=== PATIENT | male | born 1985 | race Caucasian/White ===

== ENCOUNTER 2020-09-24 20:47 | Emergency (ER) | payer MEDICAID, OTHER ==
[2020-09-24] MEDS ORDERED: Dexamethasone 10 MG/ML SDV IM ONE (21:05)
[2020-09-24] MEDS ORDERED: Ketorolac 30 MG/ML SDV IM ONE (21:05)
--- NOTE | 2020-09-24 21:10 | EDM.PDOC ---
ED HPI GENERAL MEDICAL PROBLEM - General Chief Complaint: Upper Extremity Injury/Pain Stated Complaint: PAIN IN BOTH ARMS Time Seen by Provider: 09/24/20 20:48 Source of Information: Reports: Patient History Limitations: Reports: No Limitations - History of Present Illness INITIAL COMMENTS - FREE TEXT/NARRATIVE: 35-year-old male no past medical history presents for 1 week of bilateral upper extremity pain. He describes the pain as a numbness tingling sensation to his arms radiating from the elbow down to his hands. Sometimes the right is worse than the left but he noticed today the left is greater than the right. Symptoms are waxing and waning in intensity. He denies any injuries but notes that he does a lot of overhead lifting at work. He denies any muscle weakness. He denies any headache. He does note a "muscle spasm" in his right shoulder blade. Bilateral Lower Arm Pain Score (Numeric/FACES): 8 - Related Data Allergies Allergy/AdvReac Type Severity Reaction Status Date / Time No Known Allergies Allergy Verified 09/24/20 21:04 Home Meds: Home Meds Cyclobenzaprine [Flexeril] 10 mg PO TID PRN #20 tab 09/24/20 [Rx] Ibuprofen [Motrin] 600 mg PO Q6H PRN #30 tab 09/24/20 [Rx] Methylphenidate HCl [Ritalin] 20 mg PO BID 09/24/20 [History] oxyCODONE HCl/Acetaminophen [Percocet 10-325 mg Tablet] 1 each PO Q4H PRN #12 tablet 09/24/20 [Rx] Past Medical History - Past Health History Medical/Surgical History: Denies Medical/Surgical History Social & Family History - Tobacco Use Tobacco Use Status *Q: Former Tobacco User Used Tobacco, but Quit: Yes Month/Year Tobacco Last Used: 02/24 - Recreational Drug Use Recreational Drug Use: Yes Drug Use in Last 12 Months: No Review of Systems - Review of Systems Review Of Systems: Comprehensive ROS is negative, except as noted in HPI. ED EXAM, GENERAL - Physical Exam Exam: See Below Exam Limited By: No Limitations General Appearance: Alert, WD/WN, No Apparent Distress Head: Atraumatic, Normocephalic Neck: Normal Inspection, Supple, Non-Tender Respiratory/Chest: No Respiratory Distress, No Accessory Muscle Use Cardiovascular: Normal Peripheral Pulses, Regular Rate, Rhythm Back Exam: Normal Inspection Extremities: Normal Inspection, Normal Range of Motion, Non-Tender, Normal Capillary Refill Neurological: Alert, CN II-XII Intact, Normal Gait, No Motor/Sensory Deficits Psychiatric: Normal Affect, Normal Mood Skin Exam: Warm, Dry, Intact, Normal Color Course - Vital Signs Last Recorded V/S: Last Vital Signs Temp 96.8 F L 09/24/20 21:00 Pulse 94 09/24/20 21:00 Resp 14 09/24/20 21:00 BP 108/67 09/24/20 21:00 Pulse Ox 96 09/24/20 21:00 - Orders/Labs/Meds Meds: Medications Discontinued Medications Generic Name Dose Route Start Last Admin Trade Name Freq PRN Reason Stop Dose Admin Dexamethasone 10 mg 09/24/20 21:05 Dexamethasone 10 Mg/Ml Sdv IM 09/24/20 21:06 ONETIME ONE Ketorolac Tromethamine 30 mg 09/24/20 21:05 Ketorolac 30 Mg/Ml Sdv IM 09/24/20 21:06 ONETIME ONE - Re-Assessments/Exams Free Text/Narrative Re-Assessment/Exam: 09/24/20 21:12 We will treat symptomatically with Decadron and Toradol. Will discharge with Motrin, Percocet, Flexeril. I advised patient to follow-up with his primary care physician as I believe he would benefit from an MRI for more definitive diagnosis. Return precautions were discussed and documented in an educational handout with discharge instructions. Departure - Departure Time of Disposition: 21:08 Disposition: Home, Self-Care 01 Condition: Good Clinical Impression: Cervicalgia - Discharge Information Prescriptions: Cyclobenzaprine [Flexeril] 10 mg PO TID PRN #20 tab PRN Reason: Muscle Spasm Ibuprofen [Motrin] 600 mg PO Q6H PRN #30 tab PRN Reason: Pain oxyCODONE HCl/Acetaminophen [Percocet 10-325 mg Tablet] 1 each PO Q4H PRN #12 tablet PRN Reason: Pain Instructions: Cervical Radiculopathy Referrals: PCP,None [Primary Care Provider] - Forms: ED Department Discharge Additional Instructions: Your symptoms are most suggestive of cervical radiculopathy which is like a pinched nerve somewhere in the neck. I believe you would benefit from an MRI for a more definitive diagnosis. You can discuss this with your primary care physician. In the meantime I have sent 3 prescriptions to your pharmacy. 1 is called Flexeril which is a muscle relaxant. The other is Motrin which is a pain reliever that you can use every 6 hours. Be aware if you are using this for more than 3 days in a row it can cause an upset stomach and sometimes ulcers. You should take it with food. The other is Percocet which is an opioid pain reliever that can be habit-forming and should only be used if your pain is not well controlled with the other medications. If you are experiencing pain not well controlled at home, muscle weakness, or any new or concerning symptoms you are advised to come back to the emergency department for reassessment. The following information is given to patients seen in the emergency department who are being discharged to home. This information is to outline your options for follow-up care. We provide all patients seen in our emergency department with a follow-up referral. The need for follow-up, as well as the timing and circumstances, are variable depending upon the specifics of your emergency department visit. If you don't have a primary care physician on staff, we will provide you with a referral. We always advise you to contact your personal physician following an emergency department visit to inform them of the circumstance of the visit and for follow-up with them and/or the need for any referrals to a consulting specialist. The emergency department will also refer you to a specialist when appropriate. This referral assures that you have the opportunity for follow-up care with a specialist. All of these measure are taken in an effort to provide you with optimal care, which includes your follow-up. Under all circumstances we always encourage you to contact your private physician who remains a resource for coordinating your care. When calling for follow-up care, please make the office aware that this follow-up is from your recent emergency room visit. If for any reason you are refused follow-up, please contact the [facility] at and asked to speak to the emergency department charge nurse. Please follow up with your primary care physician. If you do not have a primary care physician, see below: [facility] [address] [place] [phone] [address] [place] [address] [facility] [address] [place] [address] Sepsis Event Note (ED) - Evaluation Sepsis Screening Result: No Definite Risk - Focused Exam Vital Signs: Vital Signs Temp Pulse Resp BP Pulse Ox 09/24/20 21:00 96.8 F L 94 14 108/67 96
== END 2020-09-24 21:20 | disposition home or self-care (01) ==
LOC: MW.ED 20:47
DX: M54.2 Cervicalgia (principal); Z87.891 Personal history of nicotine dependence
CPT/HCPCS: 96372; 99283; J1100; J1885

== ENCOUNTER 2020-09-27 16:37 | Emergency (ER) | payer MEDICAID ==
[2020-09-27] MEDS ORDERED: Sodium Chloride 0.9% 2.5 ML Syringe FLUSH PRN (17:12)
[2020-09-27] MEDS ORDERED: Sodium Chloride 0.9% 10 ML Syringe FLUSH PRN (17:12)
[2020-09-27] MEDS ORDERED: Ketorolac 30 MG/ML SDV IVPUSH ONE (17:12)
[2020-09-27] MEDS ORDERED: Orphenadrine 60 MG/2 ML Inj IM ONE (17:12)
--- NOTE | 2020-09-27 17:35 | EDM.PDOC ---
ED HPI GENERAL MEDICAL PROBLEM - General Chief Complaint: Back Pain or Injury Stated Complaint: HANDS AND ELBOWS SORE AND NUMB, BACK RIBCAGE PAIN Time Seen by Provider: 09/27/20 16:42 Source of Information: Reports: Patient History Limitations: Reports: No Limitations - History of Present Illness INITIAL COMMENTS - FREE TEXT/NARRATIVE: HISTORY AND PHYSICAL: History of present illness: The patient is a 35-year-old male with no past medical history who presents to the emergency department with complaints of right upper back pain that started last night. The patient was seen in the emergency department on 09/24/2020 for complaints of 1 week of bilateral upper extremity pain. Which was described as numbness tingling sensation to his arms radiating from the elbow down to his hands. At that visit the right is worse than the left but he had noticed that his left was greater at that time. He was treated with Decadron and Toradol in the emergency department he was discharged with instructions to take Motrin, Percocet and Flexeril. Today in the emergency department the patient reports that he took the Percocet on and on Monday but none today. He states it makes him feel terrible. He took the Motrin and Flexeril also this morning and again prior to coming in. The patient states that he felt well on Monday [place] He states last night his pain returned however the pain that he had been experiencing the right anterior chest moved to the right upper back. He states that he has still has arm pain but describes it more as elbow and wrist pain with pain in his joints. Patient denies any fever, chills, headache, change in vision, syncope or near syncope. Denies any chest pain, back pain, shortness of breath or cough. Denies any abdominal pain, nausea, vomiting, diarrhea, constipation or dysuria. Has not noted any blood in urine or stool. Patient has been eating and drinking appropriately. In the emergency room the patient is hemodynamically stable with a blood pressure of 130/69 and a pulse of 93. He is afebrile with a temperature of 96.7 Review of systems: As per history of present illness and below otherwise all systems reviewed and negative. Past medical history: As per history of present illness and as reviewed below otherwise noncontributory. Surgical history: As per history of present illness and as reviewed below otherwise noncontributory. Social history: See social history for further information Family history: As per history of present illness and as reviewed below otherwise noncontri butory. Physical exam: General: Well developed and well nourished. Alert and orientated x 3. Nontoxic in appearance and in no acute distress. Vital signs are stable and have been reviewed by me. Nursing notes were reviewed. HEENT: Atraumatic, normocephalic, pupils equal and reactive bilaterally, negative for conjunctival pallor or scleral icterus, mucous membranes moist, throat clear, neck supple, nontender, trachea midline. No drooling or trismus noted. No meningeal signs. No hot potato voice noted. Lungs: Clear to auscultation bilaterally. No wheezes, rales, or rhonchi. Chest nontender. Normal work of breathing, no accessory muscles used. Heart: S1S2, regular rate and rhythm without overt murmur, gallops, or rubs. No JVD. No peripheral edema Abdomen: Soft, nondistended, nontender. Normoactive bowel sounds. Negative for masses or costovertebral tenderness. Skin: Intact, warm, dry. No lesions or rashes noted. Hematologic: No petechiae or purpra. Mucosa appropriate color and normal nail bed color and refill. Back: Upper right scapula area tender. No tenderness over spine processes. Extremities: Moves all extremities per self without deficits but with pain, negative for cords or calf pain. Neurovascular unremarkable. Neuro: Awake, alert, oriented. Cranial nerves II through XII unremarkable. Cerebellum unremarkable. Motor and sensory unremarkable throughout. Exam nonfocal. Straight leg raise negative. Psychiatric: Mood and affect are appropriate. Normal thought process. Answering questions appropriately. Notes: *This patient was seen and evaluated during the 2019 SARS-CoV-2 novel coronavirus pandemic period. Community viral transmission is ongoing at time of this encounter and the emergency department is operating under pandemic response procedures. The above the patient has returned with similar complaints of continued numbness and tingling radiating from his neck down to his hands bilaterally. He still has pain in his thumbs. He also complains of right scapular back pain. His scapular back pain is muscular possibly related to his continued numbness and tingling of his arms. I will treat the patient's discomfort with IV Toradol, IV fluids, Zofran and check labs and a urine. The patient is agreeable to the plan. The patient is has decreased pain and IV fluids. His CBC and CMP are unremarkable his CRP is elevated. I ordered a COVID-19 and prednisone 40mg. I spoke with the patient about the need for the MRI and have placed an outpatient order and placed his name on the primary care follow-up list. I also instructed him to call tomorrow by 1 PM if no one had called him for an MRI appointment. Patient is agreeable with this discharge plan. I have talked with the patient about today's findings, in addition to providing specific details for plan of care. Reassessment at the time of disposition demonstrates that the patient is in no acute distress. The patient is stable for discharge, counseling was provided and we discussed in great detail signs and symptoms that would prompt them to return to the Emergency Department. Medication, follow up and supportive care measures were reviewed and discussed. Voices understanding and is agreeable to plan of care. Denies any further questions or concerns at this time. Diagnostics: CBC, CMP, CRP, COVID-19, [employer]: IV fluids, Zofran, Toradol, prednisone 40 mg p.o. Prescription: Prednisone 40 mg p.o. daily for 4 days Impression: Cervical Radiculopathy, muscle spasm of back Plan: 1. You were evaluated today on an emergent basis. Your right upper scapula pain, numbness and tingling radiating down from your neck to your hands was evaluated with blood work which did not show an infection. Your enzyme that shows inflammation was elevated. Your urinalysis was negative for infection. I have put your name on the list for a primary care provider and I have submitted an outpatient order for a cervical MRI. What should be calling you for an appointment for the MRI and for a primary care appointment. I have given you a work note to be off work until cleared by primary care. I have sent a prednisone 40 mg daily for 4 days and for Norflex 100 mg by mouth twice daily. Please do not take your Motrin while on the prednisone as it can cause gastric distress. If you have not been called by 1 PM please call [phone] and ask for the MRI scheduling to inquire as to your appointment time. If you have worsening of symptoms please return to the emergency room. 2. You can alternate Tylenol and ibuprofen as needed for pain and fever management. 3. We encourage you to follow up with your primary care provider and/or recommended specialist in the next few days for re-evaluation and further care/management. 4. If your symptoms should worsen, new symptoms develop or any of the signs and symptoms we discussed should arise please return to the emergency room or call 911 (if needed). Definitive disposition and diagnosis as appropriate pending reevaluation and re view of above. Upper Back Pain Score (Numeric/FACES): 9 - Related Data Allergies Allergy/AdvReac Type Severity Reaction Status Date / Time No Known Allergies Allergy Verified 09/27/20 16:50 Home Meds: Home Meds Cyclobenzaprine [Flexeril] 10 mg PO TID PRN #20 tab 09/24/20 [Rx] Ibuprofen [Motrin] 600 mg PO Q6H PRN #30 tab 09/24/20 [Rx] Methylphenidate HCl [Ritalin] 20 mg PO BID 09/24/20 [History] oxyCODONE HCl/Acetaminophen [Percocet 10-325 mg Tablet] 1 each PO Q4H PRN #12 tablet 09/24/20 [Rx] Orphenadrine [Norflex] 100 mg PO BID PRN 10 Days #20 tab 09/27/20 [Rx] predniSONE [Prednisone] 40 mg PO DAILY 4 Days #8 tablet 09/27/20 [Rx] Past Medical History - Past Health History Medical/Surgical History: Denies Medical/Surgical History Respiratory History: Reports: None Gastrointestinal History: Reports: None Genitourinary History: Reports: None Musculoskeletal History: Reports: None Neurological History: Reports: None Psychiatric History: Reports: ADHD Endocrine/Metabolic History: Reports: None Oncologic (Cancer) History: Reports: None Dermatologic History: Reports: None - Infectious Disease History Infectious Disease History: Reports: Chicken Pox - Past Surgical History HEENT Surgical History: Reports: Eye Surgery, Oral Surgery Musculoskeletal Surgical History: Reports: Other (See Below) Other Musculoskeletal Surgeries/Procedures:: R ring finger amputation Social & Family History - Family History Family Medical History: No Pertinent Family History - Tobacco Use Tobacco Use Status *Q: Never Tobacco User - Caffeine Use Caffeine Use: Reports: Energy Drinks, Soda - Recreational Drug Use Drug Use in Last 12 Months: No ED ROS GENERAL - Review of Systems Review Of Systems: Comprehensive ROS is negative, except as noted in HPI. ED EXAM, GENERAL - Physical Exam Exam: See Below (See dictation) Course - Vital Signs Last Recorded V/S: Last Vital Signs Temp 96.7 F L 09/27/20 16:50 Pulse 93 09/27/20 16:50 Resp 18 09/27/20 16:50 BP 130/69 09/27/20 16:50 Pulse Ox 97 09/27/20 16:50 - Orders/Labs/Meds Orders: Active Orders 24 hr Category Date Time Status Saline Lock Insert [OM.PC] Stat Oth 09/27/20 17:11 Ordered Labs: Laboratory Tests 09/27/20 09/27/20 09/27/20 Range/Units 17:32 17:32 17:48 WBC 6.36 (4.0-11.0) K/uL RBC 4.49 L (4.50-5.90) M/uL Hgb 14.2 (13.0-17.0) g/dL Hct 41.9 (38.0-50.0) % MCV 93.3 (80.0-98.0) fL MCH 31.6 (27.0-32.0) pg MCHC 33.9 (31.0-37.0) g/dL RDW Std Deviation 48.1 (28.0-62.0) fl RDW Coeff of Nicko 14 (11.0-15.0) % Plt Count 209 (150-400) K/uL MPV 9.80 (7.40-12.00) fL Neut % (Auto) 62.0 (48.0-80.0) % Lymph % (Auto) 20.4 (16.0-40.0) % [place] % (Auto) 13.5 (0.0-15.0) % Eos % (Auto) 3.9 (0.0-7.0) % Baso % (Auto) 0.2 (0.0-1.5) % Neut # (Auto) 3.9 (1.4-5.7) K/uL Lymph # (Auto) 1.3 (0.6-2.4) K/uL [place] # (Auto) 0.9 H (0.0-0.8) K/uL Eos # (Auto) 0.3 (0.0-0.7) K/uL Baso # (Auto) 0.0 (0.0-0.1) K/uL Nucleated RBC % 0.0 /100WBC Nucleated RBCs # 0 K/uL Sodium 138 (136-148) mmol/L Potassium 4.1 (3.5-5.1) mmol/L Chloride 103 (98-107) mmol/L Carbon Dioxide 25.5 (21.0-32.0) mmol/L BUN 15 (7.0-18.0) mg/dL Creatinine 1.2 (0.8-1.3) mg/dL Est Cr Clr Drug Dosing 82.33 mL/min Estimated GFR (MDRD) > 60.0 ml/min Glucose 86 (74-106) mg/dL Calcium 7.9 L (8.5-10.1) mg/dL Total Bilirubin 0.4 (0.2-1.0) mg/dL AST 17 (15-37) IU/L ALT 34 (14-63) IU/L Alkaline Phosphatase 88 (46-116) U/L C-Reactive Protein 6.60 H (0.00-0.90) mg/dL Total Protein 6.1 L (6.4-8.2) g/dL Albumin 3.0 L (3.4-5.0) g/dL Globulin 3.1 (2.6-4.0) g/dL Albumin/Globulin Ratio 1.0 (0.9-1.6) Urine Color Urine Appearance Urine pH (5.0-8.0) Ur Specific [place] (1.001-1.035) Urine Protein (NEGATIVE) mg/dL Urine Glucose (UA) (NEGATIVE) mg/dL Urine Ketones (NEGATIVE) mg/dL Urine Occult Blood (NEGATIVE) Urine Nitrite (NEGATIVE) Urine Bilirubin (NEGATIVE) Urine Urobilinogen (<2.0) EU/dL Ur Leukocyte Esterase (NEGATIVE) SARS-CoV-2 RNA (URIEL) NEGATIVE (NEGATIVE) 09/27/20 Range/Units 18:10 WBC (4.0-11.0) K/uL RBC (4.50-5.90) M/uL Hgb (13.0-17.0) g/dL Hct (38.0-50.0) % MCV (80.0-98.0) fL MCH (27.0-32.0) pg MCHC (31.0-37.0) g/dL RDW Std Deviation (28.0-62.0) fl RDW Coeff of Nicko (11.0-15.0) % Plt Count (150-400) K/uL MPV (7.40-12.00) fL Neut % (Auto) (48.0-80.0) % Lymph % (Auto) (16.0-40.0) % [place] % (Auto) (0.0-15.0) % Eos % (Auto) (0.0-7.0) % Baso % (Auto) (0.0-1.5) % Neut # (Auto) (1.4-5.7) K/uL Lymph # (Auto) (0.6-2.4) K/uL [place] # (Auto) (0.0-0.8) K/uL Eos # (Auto) (0.0-0.7) K/uL Baso # (Auto) (0.0-0.1) K/uL Nucleated RBC % /100WBC Nucleated RBCs # K/uL Sodium (136-148) mmol/L Potassium (3.5-5.1) mmol/L Chloride (98-107) mmol/L Carbon Dioxide (21.0-32.0) mmol/L BUN (7.0-18.0) mg/dL Creatinine (0.8-1.3) mg/dL Est Cr Clr Drug Dosing mL/min Estimated GFR (MDRD) ml/min Glucose (74-106) mg/dL Calcium (8.5-10.1) mg/dL Total Bilirubin (0.2-1.0) mg/dL AST (15-37) IU/L ALT (14-63) IU/L Alkaline Phosphatase (46-116) U/L C-Reactive Protein (0.00-0.90) mg/dL Total Protein (6.4-8.2) g/dL Albumin (3.4-5.0) g/dL Globulin (2.6-4.0) g/dL Albumin/Globulin Ratio (0.9-1.6) Urine Color YELLOW Urine Appearance CLEAR Urine pH 5.5 (5.0-8.0) Ur Specific [place] 1.025 (1.001-1.035) Urine Protein NEGATIVE (NEGATIVE) mg/dL Urine Glucose (UA) NEGATIVE (NEGATIVE) mg/dL Urine Ketones NEGATIVE (NEGATIVE) mg/dL Urine Occult Blood NEGATIVE (NEGATIVE) Urine Nitrite NEGATIVE (NEGATIVE) Urine Bilirubin NEGATIVE (NEGATIVE) Urine Urobilinogen 0.2 (<2.0) EU/dL Ur Leukocyte Esterase NEGATIVE (NEGATIVE) SARS-CoV-2 RNA (URIEL) (NEGATIVE) Meds: Medications Discontinued Medications Generic Name Dose Route Start Last Admin Trade Name Freq PRN Reason Stop Dose Admin Ketorolac Tromethamine 30 mg 09/27/20 17:12 09/27/20 17:35 Ketorolac 30 Mg/Ml Sdv IVPUSH 09/27/20 17:13 30 mg ONETIME ONE Administration Orphenadrine Citrate 60 mg 09/27/20 17:12 09/27/20 17:35 Orphenadrine 60 Mg/2 Ml Inj IM 09/27/20 17:13 60 mg ONETIME ONE Administration Prednisone 40 mg 09/27/20 18:00 09/27/20 18:08 Prednisone 20 Mg Tab PO 09/27/20 18:01 40 mg ONETIME ONE Administration Sodium Chloride 10 ml 09/27/20 17:12 09/27/20 17:34 Sodium Chloride 0.9% 10 Ml Syringe FLUSH 10 ml ASDIRECTED PRN Administration Keep Vein Open Sodium Chloride 2.5 ml 09/27/20 17:12 09/27/20 17:34 Sodium Chloride 0.9% 2.5 Ml Syringe FLUSH 2.5 ml ASDIRECTED PRN Administration Keep Vein Open Departure - Departure Time of Disposition: 18:38 Disposition: Home, Self-Care 01 Condition: Good Clinical Impression: Cervical radiculopathy, Muscle spasm of back - Discharge Information *PRESCRIPTION DRUG MONITORING PROGRAM REVIEWED*: Not Applicable *COPY OF PRESCRIPTION DRUG MONITORING REPORT IN PATIENT DIONICIO: Not Applicable Prescriptions: Orphenadrine [Norflex] 100 mg PO BID PRN 10 Days #20 tab PRN Reason: Pain (Moderate 4-6) predniSONE [Prednisone] 40 mg PO DAILY 4 Days #8 tablet Instructions: Cervical Radiculopathy, [id number] Referrals: PCP,None [Primary Care Provider] - Forms: ED Department Discharge Additional Instructions: The following information is given to patients seen in the emergency department who are being discharged to home. This information is to outline your options for follow-up care. We provide all patients seen in our emergency department with a follow-up referral. The need for follow-up, as well as the timing and circumstances, are variable depending upon the specifics of your emergency department visit. If you don't have a primary care physician on staff, we will provide you with a referral. We always advise you to contact your personal physician following an emergency department visit to inform them of the circumstance of the visit and for follow-up with them and/or the need for any referrals to a consulting specialist. The emergency department will also refer you to a specialist when appropriate. This referral assures that you have the opportunity for follow-up care with a specialist. All of these measure are taken in an effort to provide you with optimal care, which includes your follow-up. Under all circumstances we always encourage you to contact your private physician who remains a resource for coordinating your care. When calling for follow-up care, please make the office aware that this follow-up is from your recent emergency room visit. If for any reason you are refused follow-up, please contact the [facility] Emergency Department at and asked to speak to the emergency department charge nurse. [facility] [address] [place] [address] [place] [address] Plan: 1. You were evaluated today on an emergent basis. Your right upper scapula pain, numbness and tingling radiating down from your neck to your hands was evaluated with blood work which did not show an infection. Your enzyme that shows inflammation was elevated. Your urinalysis was negative for infection. I have put your name on the list for a primary care provider and I have submitted an outpatient order for a cervical MRI. What should be calling you for an appointment for the MRI and for a primary care appointment. I have given you a work note to be off work until cleared by primary care. I have sent a pre dnisone 40 mg daily for 4 days and for Norflex 100 mg by mouth twice daily. Please do not take your Motrin while on the prednisone as it can cause gastric distress. If you have not been called by 1 PM please call [phone] and ask for the MRI scheduling to inquire as to your appointment time. If you have worsening of symptoms please return to the emergency room. 2. You can alternate Tylenol and ibuprofen as needed for pain and fever management. 3. We encourage you to follow up with your primary care provider and/or recommended specialist in the next few days for re-evaluation and further care/management. 4. If your symptoms should worsen, new symptoms develop or any of the signs and symptoms we discussed should arise please return to the emergency room or call 911 (if needed). Sepsis Event Note (ED) - Evaluation Sepsis Screening Result: No Definite Risk - Focused Exam Vital Signs: Vital Signs Temp Pulse Resp BP Pulse Ox 09/27/20 16:50 96.7 F L 93 18 130/69 97 - My Orders Last 24 Hours: My Active Orders 09/27/20 17:11 Saline Lock Insert [OM.PC] Stat - Assessment/Plan Last 24 Hours: My Active Orders 09/27/20 17:11 Saline Lock Insert [OM.PC] Stat
[2020-09-27 17:59] LABS: BLOOD UREA NITROGEN,BUN 15 mg/dL (7.0-18.0); CARBON DIOXIDE,CO2 25.5 mmol/L (21.0-32.0); CHLORIDE,CL 103 mmol/L (98-107); GLUCOSE RANDOM 86 mg/dL (74-106); POTASSIUM,K 4.1 mmol/L (3.5-5.1); SODIUM,NA 138 mmol/L (136-148)
[2020-09-27] MEDS ORDERED: predniSONE 20 MG Tab PO ONE (18:00)
== END 2020-09-27 19:01 | disposition home or self-care (01) ==
LOC: MW.ED 16:37
DX: M62.830 Muscle spasm of back (principal); M54.12 Radiculopathy, cervical region
CPT/HCPCS: 36415; 80053; 81003; 85025; 86140; 87635; 96372; 96374; 99283; A9270; J1885; J2360; 99284; U0002

== ENCOUNTER 2022-07-30 16:55 | Emergency (ER) | payer MEDICAID | END 2022-07-30 19:26 | disposition left against medical advice (07) | LOC: MW.ED 16:55 | DX: Z53.21 Procedure and treatment not carried out due to patient leaving prior to being seen by health care provider (principal) ==

== ENCOUNTER 2023-10-25 10:15 | Emergency (ER) | payer SELFPAY | END 2023-10-25 10:44 | disposition left against medical advice (07) | LOC: MW.ED 10:15 | DX: Z53.21 Procedure and treatment not carried out due to patient leaving prior to being seen by health care provider (principal) ==